=== PATIENT | male | born 1970 | race Caucasian/White ===

== ENCOUNTER 2017-08-17 19:21 | Emergency (ER) | payer BC ==
[2017-08-17 19:24] VITALS: BP 129/74
[2017-08-17] MEDS: Bacitracin/Neomycin/Polymyxin B Oint 0.9 GM U/D Packet TOP ONE (21:14)
--- NOTE | 2017-08-17 21:15 | EDM.PDOC ---
ED HPI GENERAL MEDICAL PROBLEM - General Chief Complaint: Laceration Stated Complaint: laceration Time Seen by Provider: 08/17/17 19:30 Source of Information: Reports: Patient History Limitations: Reports: No Limitations - History of Present Illness INITIAL COMMENTS - FREE TEXT/NARRATIVE: Patient is a 46-year-old gentleman who was seen with a laceration dorsal aspect of the hand at the base of the first MP joint apparently he was grinding when the tile grinder fell to the floor and then popped up and got him on the hand patient was seen with a laceration approximately 1-1/2 cm with rounded edges Onset: Today (At approximately 6:15) Duration: Minutes:, Constant Location: Reports: Upper Extremity, Right Quality: Reports: Dull (Pain) Severity: Mild Improves with: Reports: Other (Pressure dressing) Worsens with: Reports: None Context: Reports: Trauma Treatments 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(s) Left thumb Pain Score (Numeric/FACES): 2 - Related Data Allergies Allergy/AdvReac Type Severity Reaction Status Date / Time No Known Allergies Allergy Verified 08/17/17 19:24 Home Meds: Home Meds DULoxetine HCl [Cymbalta] 1 cap PO DAILY 03/14/16 [History] Insulin Aspart [NovoLOG] 12 units SUBCUT TIDAC 03/14/16 [History] Insulin Detemir [Levemir] 60 unit SQ DAILY 03/14/16 [History] sitaGLIPtin Phos/Metformin HCl [Janumet Xr 100-1,000 mg Tablet] 1 tab PO DAILY 03/14/16 [History] atorvaSTATin Calcium [Atorvastatin Calcium] 1 tab PO BEDTIME 08/17/17 [History] metFORMIN HCl [Metformin HCl ER] 1 tab PO DAILY 08/17/17 [History] Past Medical History Musculoskeletal History: Reports: Other (See Below) Other Musculoskeletal History: L wrist fracture Endocrine/Metabolic History: Reports: IDDM Social & Family History - Tobacco Use Smoking Status *Q: Current Every Day Smoker Years of Tobacco use: 4 Packs/Tins Daily: 0.7 Used Tobacco, but Quit: No Second Hand Smoke Exposure: No - Caffeine Use Caffeine Use: Reports: Coffee, Soda ED ROS GENERAL - Review of Systems Review Of Systems: ROS reveals no pertinent complaints other than HPI. ED EXAM, SKIN/RASH Exam: See Below Exam Limited By: No Limitations General Appearance: Alert, WD/WN, No Apparent Distress Ears: Normal External Exam, Normal Canal, Hearing Grossly Normal, Normal TMs Nose: Normal Inspection, Normal Mucosa, No Blood Throat/Mouth: Normal Inspection, Normal Lips, Normal Teeth, Normal Gums, Normal Oropharynx, Normal Voice, No Airway Compromise Head: Atraumatic, Normocephalic Neck: Normal Inspection, Supple, Non-Tender, Full Range of Motion Respiratory/Chest: No Respiratory Distress, Lungs Clear, Normal Breath Sounds, No Accessory Muscle Use, Chest Non-Tender Cardiovascular: Normal Peripheral Pulses, Regular Rate, Rhythm, No Edema, No Gallop, No JVD, No Murmur, No Rub GI/Abdominal: Normal Bowel Sounds, Soft, Non-Tender, No Organomegaly, No Distention, No Abnormal Bruit, No Mass (Male) Exam: Deferred Rectal (Males) Exam: Deferred Back Exam: Normal Inspection, Full Range of Motion, NT Extremities: Normal Inspection, Normal Range of Motion, Non-Tender, No Pedal Edema, Normal Capillary Refill Neurological: Alert, Oriented, CN II-XII Intact, Normal Cognition, Normal Gait, Normal Reflexes, No Motor/Sensory Deficits Psychiatric: Normal Affect, Normal Mood Skin: Warm, Dry, Wound/Incision (Laceration right hand dorsal aspect 1 cm irregular edges) Lymphatic: No Adenopathy ED SKIN PROCEDURES - Laceration/Wound Repair Right Dorsal Head Appearance: Superficial Distal NVT: Neuro & Vascular Intact Anesthetic Type: Local Local Anesthesia - Lidocaine (Xylocaine): 1% Plain Local Anesthetic Volume: 4cc Skin Prep: Chlorhexidine (Hibiciens) Exploration/Debridement/Repair: Minimal Debridement, No Foreign Material Found Closed with: Sutures Suture Size: 4-0 # of Sutures: 4 Suture Type: Nylon Course - Vital Signs Last Recorded V/S: Last Vital Signs Temp 98.4 F 08/17/17 19:21 Pulse 84 08/17/17 19:21 Resp 18 08/17/17 19:21 BP 129/74 08/17/17 19:21 Pulse Ox 97 08/17/17 19:21 - Orders/Labs/Meds Orders: Active Orders 24 hr Category Date Time Status Accu Check [Blood Glucose Check, Bedside] [RC] ONETIME Care 08/17/17 21:05 Active Meds: Medications Discontinued Medications Generic Name Dose Route Start Last Admin Trade Name Freq PRN Reason Stop Dose Admin Lidocaine HCl 5 ml 08/17/17 21:05 08/17/17 21:08 Xylocaine-Mpf 1% INJECT 08/17/17 21:06 5 ml ONETIME ONE Administration Neomycin/Polymyxin/Bacitracin 1 each 08/17/17 21:09 Triple Antibiotic Oint TOP 08/17/17 21:10 ONETIME ONE Departure - Departure Time of Disposition: 21:30 Disposition: Home, Self-Care 01 Condition: Good Clinical Impression: Broken skin - Discharge Information Instructions: Laceration Care, Adult, [id number] Referrals: Tiffanie Mercedes PA [Primary Care Provider] - Care Plan Goals: Suture removal in 10 days keep wound clean apply Neosporin and dressing follow- up with primary if any signs of infection - My Orders Last 24 Hours: My Active Orders 08/17/17 21:05 Accu Check [Blood Glucose Check, Bedside] [RC] ONETIME - Assessment/Plan Last 24 Hours: My Active Orders 08/17/17 21:05 Accu Check [Blood Glucose Check, Bedside] [RC] ONETIME
== END 2017-08-17 21:35 | disposition home or self-care (01) ==
LOC: LL.ED 19:21
DX: S61.011A Laceration without foreign body of right thumb without damage to nail, initial encounter (principal); F17.210 Nicotine dependence, cigarettes, uncomplicated; E11.9 Type 2 diabetes mellitus without complications; Z79.4 Long term (current) use of insulin; Z79.899 Other long term (current) drug therapy; W31.89XA Contact with other specified machinery, initial encounter; Y92.009 Unspecified place in unspecified non-institutional (private) residence as the place of occurrence of the external cause
CPT/HCPCS: 12001; 82962; 99283

== ENCOUNTER 2019-10-11 19:57 | Emergency (ER) | payer BC, OTHER ==
[2019-10-11 20:14] VITALS: BP 144/73; PULSE 107
[2019-10-11] MEDS ORDERED: Tetracaine HCl/PF 0.5% 4 ML Bottle EYEBOTH ONE (20:14)
--- NOTE | 2019-10-11 20:14 | EDM.PDOC ---
ED HPI GENERAL MEDICAL PROBLEM - General Chief Complaint: ENT Problem Stated Complaint: flash burn Time Seen by Provider: 10/11/19 20:10 Source of Information: Reports: Patient, Old Records ([facility] chart/EMR) History Limitations: Reports: No Limitations - History of Present Illness INITIAL COMMENTS - FREE TEXT/NARRATIVE: The patient was brought to the emergency room via private automobile by his for evaluation of initial 9/10 and then 5/10 burning sensation of his eyes bilaterally after possible welding exposure during the course of the day today at [facility] between the 7 AM and 3 PM. He did take 600 mg of ibuprofen at 1800 hrs. with some improvement of symptoms at time of arrival as above. The patient is a welder production line gas, however was performing a job function today where he did not need to wear his face shield (spot welding?). A coworker was about 2 feet from him performing intermittent actual welding, however no known acute injury. He began having symptoms at about 1800 hrs. this evening with ibuprofen taken at that time as above. The patient also denies any recent fever, cough, wheezing, dyspnea, etc.. No recent history of abdominal pain, heartburn, nausea, diarrhea, melena, gross hematochezia, or any food intolerance, including fatty foods, etc.. He has had welder production line gas ortiz in the past with similar type symptoms today. No history of foreign body, visual changes, etc. with the patient wearing his glasses today. Onset: Today, Gradual Onset Date: 10/11/19 Onset Time: 18:00 Duration: Getting Worse Location: Reports: Other (Eyes bilaterally as above). Denies: Head, Face, Neck, Chest, Abdomen, Back, Upper Extremity, Left, Upper Extremity, Right, Radiates to Quality: Reports: Burning, Same as Previous Episode Severity: Moderate Improves with: Reports: None Worsens with: Reports: None Context: Reports: Other (As above). 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 Bilateral Eye Pain Score (Numeric/FACES): 9 - Related Data Allergies Allergy/AdvReac Type Severity Reaction Status Date / Time No Known Allergies Allergy Verified 10/11/19 19:58 Home Meds: Home Meds DULoxetine HCl [Cymbalta] 1 cap PO DAILY 03/14/16 [History] Insulin Aspart [NovoLOG] 16 units SUBCUT TIDAC 03/14/16 [History] Insulin Detemir [Levemir] 60 unit SQ DAILY 03/14/16 [History] sitaGLIPtin Phos/Metformin HCl [Janumet Xr 100-1,000 mg Tablet] 1 tab PO DAILY 03/14/16 [History] atorvaSTATin Calcium [Atorvastatin Calcium] 1 tab PO BEDTIME 08/17/17 [History] metFORMIN HCl [Metformin HCl ER] 1 tab PO DAILY 08/17/17 [History] Ibuprofen [Advil] 600 mg PO Q6H PRN 10/11/19 [History] Polymyxin B/Trimethoprim [PolyTrim Ophth Soln] 2 drop EARBOTH QID #1 bottle 10/11/19 [Rx] bisacodyL [Bisacodyl] 5 mg PO DAILY PRN 10/11/19 [History] Past Medical History HEENT History: Reports: Allergic Rhinitis, Impaired Vision, Other (See Below). Denies: Hard of Hearing Other HEENT History: Patient wears glasses. No history of diabetic retinopathy. Cardiovascular History: Reports: High Cholesterol, Hypertension, Other (See Below) Other Cardiovascular History: Mild left atrial enlargement and mild left ventricular hypertrophy by echocardiogram. Gastrointestinal History: Reports: Chronic Constipation Genitourinary History: Reports: Chronic Renal Insuffiency, Diabetic Nephropathy, Other (See Below) Other Genitourinary History: History of proteinuria. Musculoskeletal History: Reports: Back Pain, Chronic, Fracture, Other (See Below) Other Musculoskeletal History: L2 vertebral body compression fracture on 11/21/2012. Left wrist fracture at age 7. Left compound tibial fibular midshaft fractures in 1998 requiring surgery as below. Right gastrocnemius muscle tear on 09/26/2017. Psychiatric History: Reports: Addiction, Anxiety, Bipolar, Depression, Other (See Below) Other Psychiatric History: History of alcohol abuse in his 20s with outpatient treatment in 1999. Additional previous history of marijuana use in his early 20s. Endocrine/Metabolic History: Reports: Diabetes, Type II, IDDM, Obesity/BMI 30+. Denies: Diabetes Mellitus, Type 3c, Hypothyroidism - Past Surgical History Male Surgical History: Reports: Circumcision, Other (See Below) Other Male Surgeries/Procedures: Circumcision as an infant. Musculoskeletal Surgical History: Reports: ORIF, Other (See Below) Other Musculoskeletal Surgeries/Procedures:: ORIF/cindi placement of tibial- fibular fracture in 1998. - Past Imaging History Past Imaging History: Reports: Cardiac Echo (05/22/2010 with findings as above and ejection fraction of 60%.), CAT Scan (CT of the lumbar spine on 11/19/2012.), MRI (Right lower leg on 09/26/2017.), Stress Testing (Negative Cardiolite stress test on 05/28/2010 with ejection fraction of 62%.), Ultrasound (Renal ultrasound on 10/09/2017. Testicular ultrasound on 07/15/2011 and 07/27/2007.) Social & Family History - Family History Oncologic: Reports: Lung, Metastatic, Other (See Below) Other Oncologic Family History: Maternal grandfather with fatal metastatic lung cancer at age 72 with history of previous tobacco use. - Tobacco Use Smoking Status *Q: Never Smoker Tobacco Use Within Last Twelve Months: No Years of Tobacco use: 0 Packs/Tins Daily: 0 Packs/Tins Daily Comment: Despite previous medical records patient denies any significant use of tobacco in the past. Used Tobacco, but Quit: No Smoking Cessation Information Provided To Patient: Yes Second Hand Smoke Exposure: Yes Source of Second Hand Smoke Exposure: smokes Second Hand Smoke Education Provided: Yes - Caffeine Use Caffeine Use: Reports: Coffee, Soda - Alcohol Use Alcohol Use History: Yes Days Per Week of Alcohol Use: 0 Number of Drinks Per Day: 1 Number of Drinks Per Day Comment: Usually beer once per month. Note history of alcohol abuse in his early 20s as above with DWIs x2. Total Drinks Per Week: 0 Alcohol Use in Last Twelve Months: Yes - Recreational Drug Use Recreational Drug Use: No Drug Use in Last 12 Months: No Recreational Drug Type: Reports: Marijuana/Hashish (In his early 20s with no previous treatment). Denies: Amphetamines (Speed), Cocaine, Heroin, Inhalants (Glues, Solvents, Aerosols), LSD (Acid), Methamphetamine, Morphine, Oxycodone - Living Situation & Occupation Living situation: Reports: , with Family Occupation: Employed ([employer]) ED ROS GENERAL - Review of Systems Review Of Systems: Comprehensive ROS is negative, except as noted in HPI. ED EXAM GENERAL W FULL EYE - Physical Exam Exam: See Below Exam Limited By: No Limitations General Appearance: Alert, WD/WN, No Apparent Distress Eye Exam: Bilateral Eye: Conjunctival Injection (Mild bilateral), EOMI, Normal Fundi, PERRL, Other (Patient is wearing glasses. No nystagmus) Visual Acuity (R) 20/: 25 Visual Acuity (L) 20/: 30 With Correction: Yes Eyelids: Bilateral: Normal Appearance Conjunctiva & Sclera: Bilateral: Injected (Mild) Cornea Exam: Bilateral: Examined with Flourescein Extraocular Movements: Bilateral: Intact Pupils: Normal Accommodation Pupillary Size: Bilateral: 6 mm Pupillary Reaction: Bilateral: Brisk Anterior Chamber: Bilateral: Normal Appearance Posterior Chamber: Bilateral: Normal Funduscopic Ears: Normal External Exam, Normal Canal, Hearing Grossly Normal, Normal TMs Nose: Normal Inspection, Normal Mucosa, No Blood Throat/Mouth: Normal Inspection, Normal Lips, Normal Teeth, Normal Gums, Normal Oropharynx, Normal Voice, No Airway Compromise. No: Dysphagia, Perioral Cyanosis Neck: Normal Inspection, Supple, Non-Tender, Full Range of Motion. No: Lymphadenopathy (L), Lymphadenopathy (R), Thyromegaly Respiratory/Chest: No Respiratory Distress, Lungs Clear, Normal Breath Sounds, No Accessory Muscle Use, Chest Non-Tender. No: Pleural Rub, Retractions Cardiovascular: Normal Peripheral Pulses, Regular Rate, Rhythm, No Edema, No Gallop, No JVD, No Murmur, No Rub. No: Tachycardia (Resolved at time of exam), Extra Beats, Friction Rub GI/Abdominal: Normal Bowel Sounds, Soft, Non-Tender, No Organomegaly, No Distention, No Abnormal Bruit, No Mass, Other (Obese) (Male) Exam: Deferred Rectal (Males) Exam: Deferred Back Exam: Normal Inspection, Full Range of Motion. No: CVA Tenderness (L), CVA Tenderness (R), Muscle Spasm Extremities: Normal Inspection, Normal Range of Motion, Non-Tender, No Pedal Edema, Normal Capillary Refill. No: Charlotte's Sign Neurological: Alert, Oriented, CN II-XII Intact, Normal Cognition, Normal Gait, No Motor/Sensory Deficits Psychiatric: Normal Affect, Normal Mood Skin Exam: Warm, Dry, Intact, Normal Color, No Rash. No: Diaphoretic, Wound/Incision Lymphatic: No Adenopathy ED EYE w/ Add Procedure - Eye Procedure Alcaine Drops Administered: Yes Eye Irrigated w/ Saline (ccs): 30 Progress: Negative fluorescein with no significant corneal abrasions, ecchymosis, etc. Course - Vital Signs Last Recorded V/S: Last Vital Signs Temp 36.9 C 10/11/19 19:59 Pulse 107 H 10/11/19 20:14 Resp 16 10/11/19 19:59 BP 144/73 H 10/11/19 20:14 Pulse Ox 96 10/11/19 19:59 Vital Signs - 24 hr 10/11/19 10/11/19 19:59 20:14 Temperature [ 36.9 C Temporal] Pulse, 110 H 107 H Peripheral [ Pulse Oximetry] Respiratory 16 Rate Blood Pressure 154/68 H 144/73 H [Right Upper Arm] O2 Sat by Pulse 96 Oximetry - Orders/Labs/Meds Orders: Active Orders 24 hr Category Date Time Status Obtain Past Medical Record [OM.PC] Routine Oth 10/11/19 20:15 Active Labs: None Meds: Medications Discontinued Medications Generic Name Dose Route Start Last Admin Trade Name Sandie PRN Reason Stop Dose Admin Balanced Salt Solution 30 ml 10/11/19 20:15 10/11/19 20:26 Eye Stream Eye Rinse EYELF 10/11/19 20:16 30 ml ONETIME ONE Administration Balanced Salt Solution 30 ml 10/11/19 20:15 10/11/19 20:26 Eye Stream Eye Rinse EYERT 10/11/19 20:16 30 ml ONETIME ONE Administration Tetracaine HCl 1 ml 10/11/19 20:14 10/11/19 20:26 Tetracaine 0.5% Steri-Unit Margaux EYEBOTH 10/11/19 20:15 1 ml ASDIRECTED ONE Administration - Radiology Interpretation Free Text/Narrative:: None Departure - Departure Time of Disposition: 21:00 Disposition: Home, Self-Care 01 Condition: Good Clinical Impression: Tobacco abuse counseling, Renal insufficiency, Mixed anxiety depressive disorder Conjunctivitis Qualifiers: Conjunctivitis type: acute Acute conjunctivitis type: unspecified Laterality: bilateral Qualified Code(s): H10.33 - Unspecified acute conjunctivitis, bilateral Diabetes mellitus Qualifiers: Diabetes mellitus type: type 2 Diabetes mellitus jail insulin use: with jail use Diabetes mellitus complication status: without complication Qualified Code(s): E11.9 - Type 2 diabetes mellitus without complications Hyperlipidemia Qualifiers: Hyperlipidemia type: unspecified Qualified Code(s): E78.5 - Hyperlipidemia, unspecified Osteoarthritis Qualifiers: Osteoarthritis location: multiple joints Osteoarthritis type: primary Qualified Code(s): M89.49 - Other hypertrophic osteoarthropathy, multiple sites - Discharge Information *PRESCRIPTION DRUG MONITORING PROGRAM REVIEWED*: Not Applicable *COPY OF PRESCRIPTION DRUG MONITORING REPORT IN PATIENT JAQUAN: Not Applicable Prescriptions: Polymyxin B/Trimethoprim [PolyTrim Ophth Soln] 2 drop EARBOTH QID #1 bottle Instructions: Steps to Quit Smoking, [id number], Health Risks of Smoking, Ultraviolet Keratitis Referrals: Lelia Perry NP [Primary Care Provider] - Forms: ED Department Discharge Additional Instructions: 1. Follow up with your regular provider in 4-7 days as needed, if symptoms persist. Bring these discharge instructions with you to that visit. 2. Polytrim eyedrops 2 drops in the affected eye 4 times a day with every 2 hours as needed for at least 5 days AND until 48 hours after complete resolution of symptoms as directed. You may use additional OTC artificial tears as needed as per label instructions. 3. Work excuse- See Form 4. Tylenol 650 mg by mouth every 4 hours and/or OTC ibuprofen 2-3 tabs by mouth every 6 hours with food as directed./needed. You may stagger these medications for 48-72 hours only, which essentially means that you are receiving a pain medication about every 2 hours. 5. Stop all tobacco exposure SAUL as directed with counselling, information, etc. given at discharge. 6. Immediately after this visit verify that your cellular telephone's voicemail has been activated and is empty. Also verify that your home telephone's [employer] machine is operating properly and has space to receive messages. Note that it is sometimes necessary for us to be able to contact you at a later date to discuss your medical care. 7. Please remember that we are ALWAYS here for you and want to answer any questions you may have. Feel free to call the hospital any time and we call you back SAUL. 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 Polytrim initiated with emergency room prescription provided. Workmen's Compensation and [employer] work excuse forms were completed. Last TDAP on 08/04/2015, which was confirmed by the ER nurse through [facility], with no additional tetanus required during today's evaluation. Qualifiers: Conjunctivitis type: acute Acute conjunctivitis type: unspecified Laterality: bilateral Qualified Code(s): H10.33 - Unspecified acute conjunctivitis, bilateral (2) Diabetes mellitus SNOMED Code(s): 37646263 Code(s): E11.9 - TYPE 2 DIABETES MELLITUS WITHOUT COMPLICATIONS Status: Chronic Priority: Medium Annotation/Comment:: Stable by patient history with Accu-Chek of 190 mg percent prior to arrival with a.m. Accu-Cheks averaging in the 110s and bedtime Accu-Cheks in the 140s by his history. Qualifiers: Diabetes mellitus type: type 2 Diabetes mellitus jail insulin use: with jail use Diabetes mellitus complication status: with kidney complications Diabetes mellitus complication detail: with chronic kidney disease Chronic kidney disease stage: stage 2 (mild) Qualified Code(s): E11.22 - Type 2 diabetes mellitus with diabetic chronic kidney disease; N18.2 - Chronic kidney disease, stage 2 (mild); Z79.4 - terminal system operator (current) use of insulin (3) Hyperlipidemia SNOMED Code(s): 69191272 Code(s): E78.5 - HYPERLIPIDEMIA, UNSPECIFIED Status: Chronic Priority: Medium Annotation/Comment:: Currently under therapy. Weight loss in moderation advisable. Qualifiers: Hyperlipidemia type: unspecified Qualified Code(s): E78.5 - Hyperlipidemia, unspecified (4) Osteoarthritis SNOMED Code(s): 857178086 Code(s): M19.90 - UNSPECIFIED OSTEOARTHRITIS, UNSPECIFIED SITE Status: Chronic Priority: Medium Annotation/Comment:: Stable by history. Qualifiers: Osteoarthritis location: multiple joints Osteoarthritis type: primary Qualified Code(s): M89.49 - Other hypertrophic osteoarthropathy, multiple sites (5) Renal insufficiency SNOMED Code(s): 986284819, 992090955 Code(s): N28.9 - DISORDER OF KIDNEY AND URETER, UNSPECIFIED Status: Chronic Priority: Medium Annotation/Comment:: Diabetic retinopathy with proteinuria per medical records. (6) Tobacco abuse counseling SNOMED Code(s): 451310392, [id number], 298519688 Code(s): Z71.6 - TOBACCO ABUSE COUNSELING Status: Chronic Priority: Medium Annotation/Comment:: Tobacco cessation information provided for the patient's . (7) Mixed anxiety depressive disorder SNOMED Code(s): 328192558 Code(s): F41.8 - OTHER SPECIFIED ANXIETY DISORDERS Status: Chronic Priority: Medium Annotation/Comment:: Stable by history. Note previous history of distant alcohol abuse as above. - Problem List Review Problem List Initiated/Reviewed/Updated: Yes - My Orders Last 24 Hours: My Active Orders 10/11/19 20:15 Obtain Past Medical Record [OM.PC] Routine - Assessment/Plan Last 24 Hours: My Active Orders 10/11/19 20:15 Obtain Past Medical Record [OM.PC] Routine Assessment:: As above Plan: As above. Extensive precautions were given to the patient, who is in agreement with the treatment plan. See Patient Instructions for further treatment and plan.
[2019-10-11] MEDS ORDERED: Balanced Salt Solution Ophth Irrig 30 ML Bottle EYERT ONE (20:15)
[2019-10-11] MEDS ORDERED: Balanced Salt Solution Ophth Irrig 30 ML Bottle EYELF ONE (20:15)
== END 2019-10-11 21:00 | disposition home or self-care (01) ==
LOC: LL.ED 19:57
DX: H10.33 Unspecified acute conjunctivitis, bilateral (principal); F41.8 Other specified anxiety disorders; E78.5 Hyperlipidemia, unspecified; M89.49 Other hypertrophic osteoarthropathy, multiple sites; I12.9 Hypertensive chronic kidney disease with stage 1 through stage 4 chronic kidney disease, or unspecified chronic kidney disease; N18.9 Chronic kidney disease, unspecified; E11.22 Type 2 diabetes mellitus with diabetic chronic kidney disease; E11.21 Type 2 diabetes mellitus with diabetic nephropathy; E66.9 Obesity, unspecified; F41.9 Anxiety disorder, unspecified; F32.9 Major depressive disorder, single episode, unspecified; Z68.32 Body mass index [BMI] 32.0-32.9, adult; Z79.4 Long term (current) use of insulin; Z79.899 Other long term (current) drug therapy
CPT/HCPCS: 99283